=== PATIENT | female | born 1990 | race Hispanic/Latino ===

== ENCOUNTER 2021-06-08 17:48 | Emergency (ER) | payer OTHER ==
[2021-06-08] MEDS ORDERED: Acetaminophen 500 MG TAB ONE (18:53)
[2021-06-08] MEDS ORDERED: Ondansetron PF 4 MG/2 ML Vial ONE (18:53)
[2021-06-08 18:56] LABS: #Monocytes 0.3 10x3/uL (0.0-1.1); #Neutrophils 5.5 10x3/uL (1.5-8.4); %Basophils 0.2 % (0.0-2.0); %Eosinophils 0.2 % (0.0-6.0); %Lymphocytes 9.9 % (18.0-47.0); %Monocytes 4.1 % (0.0-10.0); %Neutrophils 84.4 % (40.0-75.0); Hemoglobin 12.2 g/dL (12.0-15.5); Mean Corpuscular HGB CONC 33.8 g/dL (32.0-36.0); Mean Corpuscular Hemoglobin 29.8 pg (27.0-33.0); Mean Platelet Volume 9.8 fl (7.4-10.4); Platelet Count 181 10x3/uL (150-450); RBC Distribution Width 13.5 % (11.5-14.5); White Blood Cell (WBC) Count 6.5 10x3/uL (3.5-10.5)
[2021-06-08 19:16] LABS: ALT (SGPT) 43 U/L (8-55); AST (SGOT) 41 U/L (5-34); Albumin 3.3 g/dL (3.5-5.0); Alkaline Phosphatase 161 U/L (40-110); Anion Gap 15 mmol/L (10-20); BUN (Urea Nitrogen) 5 mg/dL (7.0-18.7); Bilirubin, Total 1.3 mg/dL (0.2-1.2); Calc. Creatinine Clearance 0 mL/min (70-130); Calcium 8.6 mg/dL (7.8-10.44); Carbon Dioxide 17 mmol/L (22-29); Chloride 107 mmol/L (98-107); Globulin 3.5 g/dL (2.4-3.5); Glucose 99 mg/dL (70-105); Potassium 3.8 mmol/L (3.5-5.1); Protein, Total 6.8 g/dL (6.0-8.3); Sodium 135 mmol/L (136-145)
[2021-06-08] MEDS ORDERED: Ventolin HFA Inhaler 60 PUFF INHALER ONE (20:03)
[2021-06-08 21:04] LABS: Bilirubin Neg (Negative); Blood, Urine Negative (Negative); Clarity Clear (Clear); Glucose, Urine (Dipstick) Normal (Negative); Ketone, Urine 150 mg/dL (Negative); Leukocyte 25 (Negative); Nitrite Negative (Negative); Protein, Urine (Dipstick) 30 mg/dl (Neg-Trace)
[2021-06-08 21:16] LABS: RBC/HPF None Seen HPF (0-3); Squamous Epithelial 0-3 HPF (0-3); WBC/HPF 0-3 HPF (0-3)
[2021-06-08 21:17] LABS: Bacteria/HPF 1+ HPF (None Seen)
== END 2021-06-09 00:03 | disposition home or self-care (01) ==
LOC: CSHERS 17:48
DX: O98.512 Other viral diseases complicating pregnancy, second trimester (principal); U07.1 COVID-19; O99.891 Other specified diseases and conditions complicating pregnancy; R00.0 Tachycardia, unspecified; Z3A.27 27 weeks gestation of pregnancy
CPT/HCPCS: 71045; 71275; 80053; 81003; 81015; 85025; 93005; 94664; 94760; 96374; J2405